=== PATIENT | female | born 1950 | race Caucasian/White ===

== ENCOUNTER 2016-11-29 16:03 | Emergency (ER) | payer MEDICARE, OTHER ==
[~2016-11-29] VITALS: Ht 157.5 cm; Wt 75.9 kg
[~2016-11-29 16:03] MED LIST: ACET500C5 PO; AMLO-147 PO; AMLO1POW3 MC; ASPI325T32 PO; ASPI81TA3 GTB; CEPH-443 PO; HYDR-3498 PO; LEVO88TA PO; LISI30TA47 PO; METO-429 PO; PHEN-538 PO; TAMS-14 PO; ZOC10 PO; [UNRECOGNIZED DRUG - CODE] PO; [UNRECOGNIZED DRUG - OTHER]
[2016-11-29 16:10] VITALS: Ht 157.5 cm; Wt 75.9 kg
[2016-11-29] MEDS ORDERED: SOD CHLORIDE 0.9% 1,000 ML IV STA (16:30)
[2016-11-29] MEDS ORDERED: KETOROLAC 15 MG INJ IV STA (16:30)
[2016-11-29] MEDS ORDERED: ALPRAZOLAM 1 MG TAB PO ONE (16:30)
[2016-11-29 17:07] LABS: BASOPHILS % 0.5 % (0.0-2.0); EOSINOPHILS # 0.1 10^3/ul (0.0-0.5); HEMATOCRIT 38.1 % (37.0-47.0); HEMOGLOBIN 12.5 g/dl (12.0-16.0); LYMPHOCYTES # 2.3 10^3/ul (0.8-2.9); LYMPHOCYTES % 37.6 % (15.0-51.0); MEAN CORPUSCULAR HEMOGLOBIN 29.8 pg (29.0-33.0); MEAN CORPUSCULAR HGB CONC 32.8 g/dl (32.0-37.0); MEAN CORPUSCULAR VOLUME 90.9 fl (82.0-101.0); MEAN PLATELET VOLUME 9.9 fl (7.4-10.4); MONOCYTE # 0.6 10^3/ul (0.3-0.9); MONOCYTES % 10.3 % (0.0-11.0); NEUTROPHILS % 49.4 % (39.0-77.0); PLATELET COUNT 257 10^3/UL (140-415); RED BLOOD COUNT 4.19 10^6/ul (4.20-5.40); RED CELL DISTRIBUTION WIDTH 14.6 % (11.5-14.5)
[2016-11-29 17:52] LABS: POTASSIUM 3.1 mmol/L (3.5-5.1)
[2016-11-29 17:55] LABS: ALBUMIN 4.2 g/dl (3.3-4.9); ALBUMIN/GLOBULIN RATIO 1.27; BILIRUBIN,INDIRECT 0.2 mg/dl (0-1.1); BILIRUBIN,TOTAL 0.2 mg/dl (0.2-1.3); CALCIUM 8.8 mg/dl (8.4-10.2); CREATININE 0.6 mg/dl (0.44-1.00); TOTAL PROTEIN 7.5 g/dl (6.1-8.1)
[2016-11-29 18:06] LABS: TROPONIN-I 0.031 ng/ml (0.00-0.12)
[2016-11-29] MEDS ORDERED: ALPR1TAB7 PO (18:09)
[2016-11-29] MEDS ORDERED: LISI40TA9 PO (18:22)
[2016-11-29] MEDS ORDERED: ISOS30TA5 PO (18:23)
[2016-11-29] MEDS ORDERED: FLUO10TA PO (18:24)
[2016-11-29] MEDS ORDERED: ALBU8.5H3 INH (18:24)
[2016-11-29] MEDS ORDERED: FLUT16SP17 NASAL (18:25)
[2016-11-29] MEDS ORDERED: IBUP800T25 PO (18:25)
[2016-11-29] MEDS ORDERED: ASPI-664 PO (18:29)
[2016-11-29 18:33] VITALS: BP 137/83; PULSE 58; RESP 18; TEMP 98.2
--- NOTE | 2016-11-29 19:59 | ERD ---
ER Documentation Chief Complaint Date/Time DATE: 11/29/16 TIME: 19:56 Chief Complaint BROUGHT BY EMS DUE TO POSS. SYNCOPE WITH HIGH BLOOD PRESSURE HPI 66-year-old woman brought in by EMS for near syncopal episode while her son's today. She was obviously very distraught and crying, he unexpectedly 4 days ago. There was no head or neck injury, there was no seizure activity, patient has had no recent complaints of chest pain or shortness of breath. Patient was helped up and brought here for evaluation. ROS All systems reviewed and are negative except as per history of present illness. Medications Home Meds Active Scripts Alprazolam* (Alprazolam*) 1 Mg Tablet, 1 MG PO TID for ANXIETY, #12 TAB Prov:JORDANA GRAY MD 11/29/16 Reported Medications Aspirin* (Aspirin* EC) 81 Mg Tablet.dr, 81 MG PO DAILY, TAB 11/29/16 Fluticasone Propionate* (Fluticasone Propionate* Nasal) 50 Mcg/Sylvester - 16 Gm Sylvester.susp, 1 SPRAY NASAL BID, #1 BOTTLE TO EACH NOSTRIL 11/29/16 Ibuprofen* (Ibuprofen*) 800 Mg Tab, 800 MG PO TID Y for PAIN, TAB 11/29/16 Albuterol Sulfate* (Proair HFA*) 8.5 Gm Hfa.aer.ad, 2 PUFF INH QID Y for WHEEZING AND SOB, #1 INHALER 11/29/16 Fluoxetine Hcl* (Prozac*) 10 Mg Tablet, 20 MG PO DAILY, TAB 11/29/16 Isosorbide Mononitrate* (Isosorbide Mononitrate*) 30 Mg Tab.er.24h, 30 MG PO QAM , TAB 11/29/16 Lisinopril* (Lisinopril*) 40 Mg Tablet, 40 MG PO DAILY, #30 TAB 11/29/16 Levothyroxine Sodium* (Synthroid*) 88 Mcg Tablet, 88 MCG PO DAILY for 90 Days 02/25/13 Amlodipine Besylate* (Amlodipine Besylate*) 10 Mg Tablet, 10 MG PO DAILY 02/25/13 Meclizine Hcl (Verticalm) 25 Mg Tablet, 25 MG PO BID NEEDED 02/25/13 Simvastatin (Simvastatin) 10 Mg Tablet, 10 MG PO HS 02/25/13 Discontinued Reported Medications Lisinopril* (Lisinopril*) 30 Mg Tablet, 40 MG PO DAILY 02/25/13 Amlodipine Besylate (AMLODIPINE BESYLATE) 1 Gm Powder, 10 GM MC 02/25/13 Aspirin* (Aspirin* EC) 325 Mg Tab, 81 MG PO DAILY 02/25/13 Aspirin (Aspirin) 81 Mg Chew, 81 MG GTB 02/25/13 Metoprolol Tartrate (LOPRESSOR) 50 Mg Tab, 25 PO BID 02/25/13 [family to bring list.] No Conflict Check 02/24/13 Discontinued Scripts Tamsulosin Hcl* (Flomax*) 0.4 Mg Cap.er.24h, 0.4 MG PO QPM, #30 CAP Prov:YVETTE TEIXEIRA NP 08/14/15 Hydrocodone Bit-Acetaminophen* (Chamberlain*) 5-325 Mg Tab, 1 TAB PO Q6 Y for PAIN, # 20 TAB Prov:YVETTE TEIXEIRA NP 08/14/15 Phenazopyridine Hcl* (Pyridium*) 200 Mg Tab, 200 MG PO TID Y for DYSURIA, #6 TAB Prov:SERAFIN CHILEL MD 08/14/15 Acetaminophen* (Tylophen*) 500 Mg Capsule, 1 CAP PO Q6H Y for PAIN AND OR ELEVATED TEMP, #16 CAP Prov:SERAFIN CHILEL MD 08/14/15 Cephalexin* (Keflex*) 500 Mg Capsule, 500 MG PO QID for 7 Days, CAP Prov:SERAFIN CHILEL MD 08/14/15 Allergies Allergies: Coded Allergies: No Known Drug Allergy (Verified Allergy, Unknown, 11/29/16) PMhx/Soc Obesity, dyslipidemia, hypertension, hypothyroidism, depression, CAD Anesthesia Reaction: No Hx Neurological Disorder: No Hx Respiratory Disorders: No Hx Cardiac Disorders: Yes (hx hypertension) Hx Psychiatric Problems: No Hx Miscellaneous Medical Probl: Yes (hx hyperthyroidism) Hx Alcohol Use: No Hx Substance Use: No Hx Tobacco Use: No Smoking Status: Never smoker FmHx Family History: No diabetes Physical Exam Vitals Vital Signs Date Time Temp Pulse Resp B/P Pulse Ox O2 Delivery O2 Flow Rate FiO2 11/29/16 18:33 98.2 58 18 137/83 98 Room Air 11/29/16 16:10 98.2 64 18 183/95 96 Physical Exam GENERAL: Well-developed, well-nourished, well-hydrated, appears distraught, afebrile HEENT: Moist mucous membranes, pink conjunctiva, no cervical spine tenderness or step-off deformities, no goiter, no jaundice or icterus, extraocular movements intact without pain. No submandibular induration, and no pharyngeal erythema NEURO: Alert and oriented 3, cranial nerves II through XII intact bilaterally, pupils equal round reactive to light, no focal deficits or facial asymmetry, sensation intact distally Strength 5/5 in upper and lower extremities bilaterally CARDIAC: Regular rate and rhythm, no murmurs rubs or gallops LUNGS: Clear bilaterally no wheezing crackles or stridor ABDOMEN: Soft nontender, no guarding, no rigidity, no rebound, no psoas sign no obturator sign. Normoactive bowel sounds SKIN: Warm and dry to touch, no abrasions, contusions, or hematomas, no lacerations, no ecchymosis, no target lesions, and without ulcers EXTREMITIES: No clubbing cyanosis or edema, calves are bilaterally symmetrical, no Homans sign, no popliteal cord sign. Distal pulses equal and bilateral PSYCH: Depressed affect Result Diagram: 11/29/16 1653 11/29/16 1653 Results 24 hrs Laboratory Tests Test 11/29/16 16:53 White Blood Count 6.010^3/ul Red Blood Count 4.1910^6/ul Hemoglobin 12.5g/dl Hematocrit 38.1% Mean Corpuscular Volume 90.9fl Mean Corpuscular Hemoglobin 29.8pg Mean Corpuscular Hemoglobin Concent 32.8g/dl Red Cell Distribution Width 14.6% Platelet Count 27186^3/UL Mean Platelet Volume 9.9fl Neutrophils % 49.4% Lymphocytes % 37.6% Monocytes % 10.3% Eosinophils % 2.0% Basophils % 0.5% Nucleated Red Blood Cells % 0.0/100WBC Neutrophils # 3.010^3/ul Lymphocytes # 2.310^3/ul Monocytes # 0.610^3/ul Eosinophils # 0.110^3/ul Basophils # 0.010^3/ul Nucleated Red Blood Cells # 0.010^3/ul Sodium Level 146mmol/L Potassium Level 3.1mmol/L Chloride Level 104mmol/L Carbon Dioxide Level 27mmol/L Anion Gap 18 Blood Urea Nitrogen 10mg/dl Creatinine 0.60mg/dl Glucose Level 99mg/dl Calcium Level 8.8mg/dl Total Bilirubin 0.2mg/dl Direct Bilirubin 0.00mg/dl Indirect Bilirubin 0.2mg/dl Aspartate Amino Transf (AST/SGOT) 30IU/L Alanine Aminotransferase (ALT/SGPT) 34IU/L Alkaline Phosphatase 94IU/L Troponin I 0.031ng/ml Total Protein 7.5g/dl Albumin 4.2g/dl Globulin 3.30g/dl Albumin/Globulin Ratio 1.27 Lipase 78U/L Current Medications Medications (Trade) Dose Ordered Sig/Rosales Route PRN Reason Start Time Stop Time Status Last Admin Dose Admin Sodium Chloride (NS) 1,000 ml @ 1,000 mls/hr Q1H STAT IV 11/29/16 16:30 11/29/16 17:29 DC 11/29/16 17:03 Ketorolac Tromethamine (Toradol) 15 mg ONCE STAT IV 11/29/16 16:30 11/29/16 16:31 DC 11/29/16 17:03 Alprazolam (Xanax) 1 mg ONCE ONCE PO 11/29/16 16:30 11/29/16 16:31 DC 11/29/16 17:04 Clonidine (Catapres) 0.1 mg ONCE ONCE PO 11/29/16 17:00 11/29/16 17:01 DC 11/29/16 17:04 Procedures/[facility] IV line was established 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 Patient was afebrile. I administered 1 L normal saline intravenously, alprazolam 1 mg p.o., Toradol 15 mg IV for headache, and clonidine 0.1 mg p.o. for hypertension. CBC and electrolytes were normal, liver function tests are normal, troponin was negative. EKG performed, read by me: 61 bpm, normal sinus rhythm, normal axis, no acute ST segment changes, narrow QRS complex, with good R-wave progression in precordial leads. Blood pressure improved, patient's symptoms have improved as well. Patient has no suicidal homicidal ideation and will be able to follow-up with her primary care physician as an outpatient. Differential diagnoses considered, included but not limited to acute coronary syndrome, pulmonary embolism, aortic dissection, abdominal aortic aneurysm, sepsis, stroke, meningitis, encephalitis, pneumonia, appendicitis, cholecystitis , bowel obstruction, pyelonephritis, nephrolithiasis, cystitis, as well as metabolic, hematologic, and electrolyte abnormalities. As well as abscess, cellulitis, fractures, and dislocations. Patient feels much better at this time, and vital signs are normal, symptoms have improved. I did give strict instructions to return to the ED if symptoms continue or worsen, patient will otherwise follow-up with primary care physician. Patient understood instructions and agreed to plan. Disclaimer: Inadvertent spelling and grammatical errors are likely due to EHR/ dictation software use and do not reflect on the overall quality of patient care. Also, please note that the electronic time recorded on this note does not necessarily reflect the actual time of the patient encounter. Departure Diagnosis: Primary Impression: Grief reaction Additional Impressions: Hypertension Hypertension type: essential hypertension Qualified Code: I10 - Essential hypertension Near syncope Condition: Good Patient Instructions: High Blood Pressure (Hypertension), Grief Reaction JORDANA GRAY MD Nov 29, 2016 19:59
== END 2016-11-29 18:12 | disposition home or self-care (01) ==
LOC: E/R 16:03
DX: F43.20 Adjustment disorder, unspecified (principal); I10 Essential (primary) hypertension; I25.10 Atherosclerotic heart disease of native coronary artery without angina pectoris; E66.9 Obesity, unspecified; Z68.30 Body mass index [BMI] 30.0-30.9, adult; Z79.82 Long term (current) use of aspirin
CPT/HCPCS: 36415; 80053; 83690; 84484; 85025; 96374; 99284; J1885; J7030; 93005